=== PATIENT | female | born 1985 | race Caucasian/White ===

== ENCOUNTER → 2017-04-06 | Outpatient (CLI) | payer OTHER ==
[~2017-04-06] MED LIST: IBUP600T44 PO; OXYC-57 PO; PRENTAB26 PO
[2017-04-06 13:24] LABS: HEMATOCRIT 33.6 % (37-47); MEAN CELL VOLUME 82.4 fL (80-100); MEAN CORPUSCULAR HGB CONC 31.5 g/dl (32-36); MEAN PLATELET VOLUME 9.8 fL (7.4-10.4); PLATELET COUNT 410 K/uL (130-400); RED BLOOD COUNT 4.08 M/uL (4.2-5.4); WHITE BLOOD COUNT 7.01 K/uL (4.8-10.8)
== END | disposition home or self-care (01) ==
LOC: C.LAB1850 12:06
PROVIDERS: ATTEND Obstetrics & Gynecology
DX: N93.8 Other specified abnormal uterine and vaginal bleeding (principal)

== ENCOUNTER → 2017-07-04 | Outpatient (CLI) | payer OTHER | END | disposition home or self-care (01) | LOC: C.PAPS 16:42 | PROVIDERS: ATTEND Obstetrics & Gynecology | DX: Z01.419 Encounter for gynecological examination (general) (routine) without abnormal findings (principal) ==

== ENCOUNTER → 2017-07-27 | Outpatient (CLI) | payer OTHER | END | disposition home or self-care (01) | LOC: C.PATHSPEC 10:49 | PROVIDERS: ATTEND Obstetrics & Gynecology | DX: N93.8 Other specified abnormal uterine and vaginal bleeding (principal) ==

== ENCOUNTER 2018-03-29 09:18 | Emergency (ER) | payer OTHER ==
[~2018-03-29] VITALS: Ht 165.1 cm; Wt 100.0 kg
[2018-03-29 09:28] VITALS: TEMP 36.8; Ht 165.1 cm; Wt 100.0 kg
[2018-03-29] MEDS ORDERED: BCPILLS PO (10:08)
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
--- NOTE | 2018-03-29 10:40 | DIAGNOSTIC IMAGING REPORT ---
L SHOULDER MIN 2 VIEWS ROUTINE CLINICAL HISTORY: 32 years-old Female presenting with left shoulder pain. TECHNIQUE: Internal rotation, external rotation, Grashey views of the left shoulder were obtained. COMPARISON: None. FINDINGS: Glenohumeral and acromioclavicular joints congruent. No acute fracture or malalignment. No advanced degenerative change. No radiographic soft tissue abnormality. IMPRESSION: No acute osseous injury. Electronically signed by: James Moore M.D. 03/29/2018 10:39 AM Dictated Date/Time: 03/29/2018 10:38 AM
--- NOTE | 2018-03-29 10:40 | DIAGNOSTIC IMAGING REPORT ---
LEFT KNEE 3 VIEWS CLINICAL HISTORY: Left knee pain. FINDINGS: AP, crosstable lateral, and sunrise views of the left knee are obtained. No prior studies are available for comparison at the time of dictation. The skeletal structures are well mineralized. No fracture is seen. The joint spaces of the knee are well-maintained. A small joint effusion is suggested. The overlying soft tissues are within normal limits. IMPRESSION: Suspect a small joint effusion. No acute osseous abnormality is seen. Electronically signed by: Raul Lopez M.D. 03/29/2018 10:38 AM Dictated Date/Time: 03/29/2018 10:37 AM
[2018-03-29 10:52] VITALS: BP 109/73; PULSE 79; O2SAT 99
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
== END 2018-03-29 11:20 | disposition home or self-care (01) ==
LOC: C.EDB 09:20
DX: S80.02XA Contusion of left knee, initial encounter (principal); V48.5XXA Car driver injured in noncollision transport accident in traffic accident, initial encounter; M54.2 Cervicalgia; R40.2412 Glasgow coma scale score 13-15, at arrival to emergency department; Z79.3 Long term (current) use of hormonal contraceptives; Z88.0 Allergy status to penicillin; Z91.013 Allergy to seafood